=== PATIENT | male | born 1985 | race African-American/Black ===

== ENCOUNTER 2017-03-22 20:07 | Emergency (ER) | payer OTHER ==
[~2017-03-22] VITALS: Ht 175.3 cm; Wt 122.5 kg
[~2017-03-22 20:07] MED LIST: IBUPROFEN 600600 M1 PO; NORCO 5-325 TA1 EACH PO
[2017-03-22] MEDS ORDERED: MOBIC15 MG PO (21:02)
[2017-03-22 21:25] VITALS: BP 154/87
== END 2017-03-22 21:26 | disposition home or self-care (01) ==
LOC: ER 20:07
DX: S93.401A Sprain of unspecified ligament of right ankle, initial encounter (principal); W94.12XA Exposure to other prolonged low air pressure, initial encounter; Y93.68 Activity, volleyball (beach) (court); Y92.9 Unspecified place or not applicable; Y99.9 Unspecified external cause status